=== PATIENT | male | born 1955 | race Caucasian/White ===

== ENCOUNTER → 2017-02-13 | Outpatient (CLI) | payer MEDICARE ==
[~2017-02-13] MED LIST: HYDROCODON-ACE1 EA12 PO; LO-DOSE ASPIRIN81 M1 PO; METOPROLOL SUCC25 MG PO; MULTI VITAMIN1 EACH PO; NITROGLYGERIN0.4 MG SL; ROSUVASTATIN CA10 MG PO; ZESTRIL5 MG PO
[2017-02-13 16:06] LABS: GLOM FILT RATE Estimated 79.8 mL/min (>60)
== END | disposition home or self-care (01) ==
LOC: CLAB 15:02
PROVIDERS: Registered Nurse
DX: I71.4 Abdominal aortic aneurysm, without rupture (principal)
CPT/HCPCS: 82565; 84520

== ENCOUNTER → 2017-03-11 | Outpatient (CLI) | payer MEDICARE ==
--- NOTE | ~2017-03-11 | CT14 ---
[facility] A Service of [facility] & [facility] RADIOLOGY TEXT RESULTS PATIENT: PRANAV SERVIN LOCATION: [facility] : 53 UNIT #: [id number] AGE: [address]: Briana Ortiz SEX: M ORDER DR: [id number] [facility] [address] [facility]. [place], [place] [address] [id number] O MR#: [id number] Acc #: [id number] NAME: PRANAV SERVIN : 1955 SEX: M STUDY DATE/TIME: 03/11/2017 12:03 UNIT: [facility] ROOM: STUDY DESCRIPTION: CT Angio Abdomen and Pelvis Attending Physician: Briana Ortiz A.P.R.N. Referring Physician: Briana Ortiz A.P.R.N. Ordering Physician: Briana Ortiz A.P.R.N. Primary Care Physician: Saeid Richards M.D. MEDICAL IMAGING REPORT This report is preliminary unless electronic signature is present EXAM CT angiogram of the abdomen and pelvis with contrast. INDICATIONS 61-year-old male with followup aortic aneurysm. TECHNIQUE CT angiogram of the abdomen and pelvis was performed following administration of IV contrast. Coronal, sagittal, and 3-D reformatted images were obtained. This CT exam was performed with one or more of the following radiation dose reduction techniques: automatic exposure control, adjustment of mA and/or kV according to patient size, and iterative reconstruction. COMPARISON 09/09/[address] ANGIOGRAM: Stable infrarenal abdominal aortic aneurysm measuring about 4.5 cm in greatest dimension. The visceral arteries are stable in appearance. The iliac arteries are stable in appearance. CT ABDOMEN: Evaluation of the lung bases demonstrates a large left hilar mass measuring 4.2 x 3.8 cm, highly suspicious for malignancy. There is a stable 1.1-cm nodule in the lung base on the right. The liver is unremarkable. Cholecystectomy. Tiny amount of pneumobilia. The spleen, kidneys, adrenal glands and pancreas are unremarkable. PELVIS: Small fat-containing left inguinal hernia. The colon is unremarkable. STS. [facility] A Service of [facility] & [facility] RADIOLOGY TEXT RESULTS PATIENT: RPANAV SERVIN LOCATION: [facility] : 53 UNIT #: [id number] AGE: [address]: Briana Ortiz SEX: M ORDER DR: Bone windows demonstrate bilateral hip arthroplasties and degenerative changes of the lumbar spine. IMPRESSION 1. Noted in the lung bases is a large left hilar mass highly suspicious for malignancy. It measures 4.2 x 3.8 cm. Recommend formal chest CT with contrast for further evaluation, as well as pulmonary consultation. 2. Stable infrarenal abdominal aortic aneurysm. 3. Findings were discussed with the patient's ordering provider, Mark Ortiz, at 02:08 p.m. on 03/12/2017. Dictated by... Gordo Nascimento M.D. THIS IS AN ELECTRONICALLY VERIFIED REPORT Gordo Nascimento M.D. at 03/14/2017 9:08 AM LUCIANO/phil TD: 03/12/2017 17:02 JOB #: [id number] MEDICAL IMAGING REPORT Page 1 of 1 COPY
== END | disposition home or self-care (01) ==
LOC: CCAT 10:54
DX: I71.4 Abdominal aortic aneurysm, without rupture (principal); R91.8 Other nonspecific abnormal finding of lung field
CPT/HCPCS: 74174; Q9967

== ENCOUNTER → 2017-04-24 | Outpatient (CLI) | payer MEDICARE ==
--- NOTE | ~2017-04-24 | PFT ---
[id number] [facility]. [place], [place] [address] [id number] O MR#: [id number] NAME: PRANAV SERVIN ROOM: SEX: M STUDY DATE/TIME: 04/30/2017 : 1955 AGE: 61 STUDY DESCRIPTION: Attending Physician: Elmer Ramirez M.D. Referring Physician: Elmer Ramirez M.D. Primary Care Physician: Saeid Richards M.D. PULMONARY DIAGNOSTIC REPORT EXAM Pulmonary function test. FINDINGS Spirometry is consistent with a mild to moderate restrictive defect. FEV1 is 2.58 liters, 60% of predicted. There is no response to bronchodilators. Flow volume loop is suggestive of a combined defect. Lung volumes reveal air trapping and hyperinflation. Diffusion capacity is moderately to severely reduced. Dictated by... Delroy Green M.D. WOL/gz TD: 04/30/2017 09:16 JOB #: [id number] CC: Elmer Ramirez M.D. PULMONARY DIAGNOSTIC REPORT Page 1 of 1
--- NOTE | ~2017-04-24 | PFT ---
[id number] [facility]. [place], [place] [address] [id number] O MR#: [id number] NAME: PRANAV SERVIN ROOM: SEX: M STUDY DATE/TIME: 04/29/2017 : 1955 AGE: 61 STUDY DESCRIPTION: Attending Physician: Elmer Ramirez M.D. Referring Physician: Elmer Ramirez M.D. Primary Care Physician: Saeid Richards M.D. PULMONARY DIAGNOSTIC REPORT EXAM PFT. FINDINGS Spirometry is suggestive of a restrictive defect. There is no significant response to bronchodilators. FEV1 is 2.58 liters, 60% of predicted. Flow volume loop is suggestive of an obstructive defect. Lung volumes fail to confirm a restrictive defect. Dictated by... Delroy Green M.D. WAGNER/sue TD: 04/29/2017 15:07 JOB #: [id number] PULMONARY DIAGNOSTIC REPORT Page 1 of 1
--- NOTE | ~2017-04-24 | CT55 ---
[facility] A Service of [facility] & [facility] RADIOLOGY TEXT RESULTS PATIENT: PRANAV SERVIN LOCATION: [facility] : 53 UNIT #: [id number] AGE: [address]: Elmer Ramirez MD SEX: M ORDER DR: [id number] [facility] [address] [facility]. [place], [place] [address] [id number] O MR#: [id number] Acc #: [id number] NAME: PRANAV SERVIN : 1955 SEX: M STUDY DATE/TIME: 04/24/2017 9:52 UNIT: [facility] ROOM: STUDY DESCRIPTION: CT Chest W Con Attending Physician: Elmer Ramirez M.D. Referring Physician: Elmer Ramirez M.D. Ordering Physician: Elmer Ramirez M.D. Primary Care Physician: Saeid Richards M.D. MEDICAL IMAGING REPORT This report is preliminary unless electronic signature is present EXAM CT scan of the chest with contrast INDICATIONS Evaluate left hilar mass. COMPARISON CT abdomen 03/11/2017. TECHNIQUE Patient was given 100 mL of Isovue-370 and axial 5-mm images were obtained through the chest. This CT exam was performed with one or more of the following radiation dose reduction techniques: Automatic exposure control, adjustment of mA and/or kV according to patient size, and iterative reconstruction. FINDINGS There is a left hilar mass abutting the pulmonary artery. It is about 4.3 x 3.8 x 4.1 cm and is very suspicious for a malignancy. It is approximately the same size as it was 03/11/2017. There is a normal-sized node in the pretracheal region measuring 16 mm in diameter. It is unchanged from the prior study. The visualized portions of the upper abdomen show previous cholecystectomy and are otherwise unremarkable. Sternotomy wires are present. The bones are otherwise unremarkable. There is a 10-mm nodule in the right lung base which is noncalcified and that is also unchanged from 03/11. The rest of the lungs are clear. IMPRESSION 1. There is a left hilar mass measuring about 4 cm in each dimension that is unchanged from 03/11/2017 that is very suspicious for a primary malignancy. There is a lymph node seen in the pretracheal region which is stable from 03/11 and it is at upper limits of normal STS. [facility] A Service of [facility] RADIOLOGY TEXT RESULTS PATIENT: PRANAV SERVIN LOCATION: [facility] : 53 UNIT #: [id number] AGE: [address]: Elmer Ramirez MD SEX: M ORDER DR: in size. 2. There is a 10-11 mm noncalcified nodule in the right base which is stable. 3. Otherwise, the study is negative. Dictated by... Frankie Garcia M.D. THIS IS AN ELECTRONICALLY VERIFIED REPORT Frankie Garcia M.D. at 04/25/2017 9:42 AM DARELL/jourdan TD: 04/24/2017 20:30 JOB #: [id number] MEDICAL IMAGING REPORT Page 1 of 1 COPY
[2017-04-24 08:04] LABS: ARTERIAL BLD GAS O2 SATURATION 92.6 % (90.0-100.0); ARTERIAL BLOOD GAS ALLEN TEST NORMAL; ARTERIAL BLOOD GAS ART SITE RIGHT RADIAL; ARTERIAL BLOOD GAS CARBOXY HB 2.1 %sat (0.0-9.0); ARTERIAL BLOOD GAS HCO3 28.8 mmol/L; ARTERIAL BLOOD GAS MET HB 0.5 %sat (0.0-2.0); ARTERIAL BLOOD GAS PCO2 45.4 mmHg (35.0-45.0); ARTERIAL DRAW? YES
[2017-04-24 11:56] LABS: POC - CREATININE 0.85 mg/dL (0.64-1.27); POC - GFR >60.0 mL/min (>60)
== END | disposition home or self-care (01) ==
LOC: CRC 07:46
PROVIDERS: Surgery
DX: R91.1 Solitary pulmonary nodule (principal); R91.8 Other nonspecific abnormal finding of lung field
CPT/HCPCS: 36600; 71260; 82565; 82803; 94060; 94726; 94729; Q9967

== ENCOUNTER → 2017-05-01 | Day surgery (SDC) | payer MEDICARE ==
--- NOTE | ~2017-05-01 | OR ---
Unit #: [id number] #: [id number] Patient: PRANAV SERVIN [id number] [address] [address] [id number] O MR#: [id number] NAME: PRANAV SERVIN ROOM: Date of Procedure: 05/01/2017 Admission Date: 05/01/2017 Surgeon: Elmer Ramirez M.D. : 1955 Attending Physician: Elmer Ramirez M.D. Referring Physician: Elmer Ramirez M.D. OPERATIVE REPORT PREOPERATIVE DIAGNOSES 4.2 cm left hilar mass; 1.1 cm nodule at the right lung base. POSTOPERATIVE DIAGNOSES 4.2 cm left hilar mass; 1.1 cm nodule at the right lung base with gross tumor being present in the upper division of the left upper lobe. PROCEDURES PERFORMED Flexible fiberoptic bronchoscopy with biopsies obtained from the left upper lobe tumor and with bronchial washings being collected. ANESTHESIA MAC. ESTIMATED BLOOD LOSS About 3 mL. COMPLICATIONS None. DESCRIPTION OF PROCEDURE The patient was taken to the endoscopy suite and left on a stretcher in a supine position. After appropriate monitoring lines had been placed, IV sedation was given per the Anesthesia Department. Hurricaine spray was used to anesthetize the posterior pharynx. After adequate anesthesia had been obtained in this fashion, the flexible bronchoscope was passed orally per a bite block into the posterior pharynx. The vocal cords were visualized and found to be without lesions and both moved well with phonation. Anesthesia of the cords was obtained by injecting 2% Xylocaine per the scope. The scope was passed through the cords into the trachea. 1% Xylocaine was injected per the scope to anesthetize the tracheobronchial tree. The entire length of trachea was visualized and found to be within normal limits. The maria de jesus was fairly sharp. The right upper lobe, right middle lobe, and right lower lobe were all examined to their subsegmental bronchi level and found to be within normal limits. The left mainstem bronchus was normal. The left lower lobe was examined to its subsegmental bronchi level and found to be within normal limits. Examination of the left upper lobe showed the lingular segment to be open and without lesions. Examination of the upper division of the left upper lobe showed what seemed to be gross tumor involving the anterior and inferior wall. Photos were taken. Multiple biopsies were taken of what seemed to be the tumor involving the left upper lobe upper division Unit #: [id number] #: [id number] Patient: PRANAV SERVIN bronchus. There was some bleeding from the biopsy sites and this was controlled by instilling epinephrine solution per the scope. After adequate hemostasis had been ensured, bronchial washings that had been obtained up to this point were sent for cytology as well as cultures. The bronchoscope was removed. The patient tolerated the procedure well and left the endoscopy suite in satisfactory condition. Dictated by... Amita Torres/deanne TD: 05/02/2017 19:10 JOB #: [id number] OPERATIVE REPORT Page 1 of 1 X Elmer Ramirez MD X PROCEDURE OPERATIVE NOTE
== END | disposition home or self-care (01) ==
LOC: COPS 08:52
PROVIDERS: Surgery
DX: C34.12 Malignant neoplasm of upper lobe, left bronchus or lung (principal); J44.9 Chronic obstructive pulmonary disease, unspecified; F17.200 Nicotine dependence, unspecified, uncomplicated; I25.10 Atherosclerotic heart disease of native coronary artery without angina pectoris; I25.2 Old myocardial infarction
CPT/HCPCS: 87070; 87077; 87102; 87106; 87116; 87186; 87205; 87206; 88108; 88305; 88341; 88342; J0171; J2250

== ENCOUNTER → 2017-05-23 | Outpatient (CLI) | payer MEDICARE ==
--- NOTE | ~2017-05-23 | CT69 ---
[facility] A Service of [facility] RADIOLOGY TEXT RESULTS PATIENT: PRANAV SERVIN LOCATION: [facility] : 53 UNIT #: [id number] AGE: [address]: Elmer Ramirez MD SEX: M ORDER DR: [id number] [facility]. [place], [place] [address] [id number] O MR#: [id number] Acc #: [id number] NAME: PRANAV SERVIN : 1955 SEX: M STUDY DATE/TIME: 05/23/2017 10:36 UNIT: [facility] ROOM: STUDY DESCRIPTION: CT Head W Contrast Attending Physician: Elmer Ramirez M.D. Referring Physician: Elmer Ramirez M.D. Ordering Physician: Elmer Ramirez M.D. Primary Care Physician: Saeid Richards M.D. MEDICAL IMAGING REPORT This report is preliminary unless electronic signature is present EXAM Contrast-enhanced head CT, 05/23/2017 PROCEDURE Axial contrast-enhanced head CT. This CT exam was performed with one or more of the following radiation dose reduction techniques: Automatic exposure control, adjustment of mA and/or kV according to patient size, and iterative reconstruction. COMPARISON None HISTORY Diagnosed with lung cancer in March 2017, now with one-year history of blurred vision. FINDINGS The study is motion degraded. Allowing for this, there is no intracranial mass or abnormal enhancement. Motion certainly limits the exam, but there is no evidence of metastatic disease and the brain itself appears normal. The extracranial soft tissues, skull base and calvarium appear normal. IMPRESSION Motion limited, otherwise normal negative contrast-enhanced head CT. Dictated by... Hilario Bass M.D. THIS IS AN ELECTRONICALLY VERIFIED REPORT Hilario Bass M.D. at 05/27/2017 5:20 PM TEV/psc [facility] A Service [facility] RADIOLOGY TEXT RESULTS PATIENT: PRANAV SERVIN LOCATION: [facility] : 53 UNIT #: [id number] AGE: [address]: Elmer Ramirez MD SEX: M ORDER DR: TD: 05/23/2017 22:57 JOB #: [id number] MEDICAL IMAGING REPORT Page 1 of 1 COPY
[2017-05-23 11:56] LABS: POC - CREATININE 0.77 mg/dL (0.64-1.27); POC - GFR >60.0 mL/min (>60)
== END | disposition home or self-care (01) ==
LOC: CCAT 09:06
PROVIDERS: Surgery
DX: C34.92 Malignant neoplasm of unspecified part of left bronchus or lung (principal)
CPT/HCPCS: 70460; 82565; Q9967

== ENCOUNTER → 2017-05-29 | Outpatient (CLI) | payer MEDICARE ==
[2017-05-29 16:31] LABS: ARTERIAL BLD GAS O2 SATURATION 90.3 % (90.0-100.0); ARTERIAL BLOOD GAS CARBOXY HB 2.9 %sat (0.0-9.0); ARTERIAL BLOOD GAS HCO3 29.6 mmol/L; ARTERIAL BLOOD GAS MET HB 0.7 %sat (0.0-2.0); ARTERIAL BLOOD GAS PCO2 47.2 mmHg (35.0-45.0); ARTERIAL BLOOD GAS pH 7.405 (7.350-7.450)
[2017-05-29 16:32] LABS: ARTERIAL BLOOD GAS ART SITE RIGHT RADIAL; ARTERIAL BLOOD GAS PO2 66.8 mmHg (80.0-100); ARTERIAL DRAW? YES
== END | disposition home or self-care (01) ==
LOC: CLAB 16:11
PROVIDERS: Surgery
DX: C34.90 Malignant neoplasm of unspecified part of unspecified bronchus or lung (principal)
CPT/HCPCS: 36600; 82803

== ENCOUNTER → 2017-06-12 | Day surgery (SDC) | payer MEDICARE ==
--- NOTE | ~2017-06-12 | EKG ---
PATIENT: PRANAV SERVIN UNIT #: [id number] Ventricular Rate: 53 BPM Atrial Rate: 53 BPM P-R Interval: 210 ms QRS Duration: 140 ms Q-T Interval: 474 ms QTC Calculation(Bezet): 444 ms P Arcadia: -1 degrees Calculated R [place]cad[place]: 55 degrees Calculated T [place]cad[place]: 116 degrees Diagnosis Line: Sinus bradycardia with sinus arrhythmia with 1st Diagnosis Line: degree A-V block Diagnosis Line: Non-specific intra-ventricular conduction block Diagnosis Line: Abnormal QRS-T angle, consider primary T wave Diagnosis Line: abnormality Diagnosis Line: Abnormal ECG Diagnosis Line: No previous ECGs available Diagnosis Line: Confirmed by GAIL TUCKER MD ([id number]) on 06/13/2017 Diagnosis Line: 4:58:38 PM INTERPRETING MD: GARRETT RICHEY
--- NOTE | ~2017-06-12 | CR72 ---
[facility] A Service of [facility] RADIOLOGY TEXT RESULTS PATIENT: PRANAV SERVIN LOCATION: [facility] : 53 UNIT #: [id number] AGE: [address]: Elmer Ramirez MD SEX: M ORDER DR: [id number] [facility] [address] [facility]. [place], [place] [address] [id number] O MR#: [id number] Acc #: [id number] NAME: PRANAV SERVIN : 1955 SEX: M STUDY DATE/TIME: 06/12/2017 11:58 UNIT: [facility] ROOM: STUDY DESCRIPTION: CR Chest Single View Portable Attending Physician: Elmer Ramirez M.D. Ordering Physician: Elmer Ramirez M.D. Primary Care Physician: Saeid Richards M.D. MEDICAL IMAGING REPORT This report is preliminary unless electronic signature is present EXAM AP portable chest DATE 06/12/2017 HISTORY Postop port placement today. Previous CABG and stent placement. History of lung cancer. COMPARISON PET/CT 05/15/2017, AP portable chest 12/02/2016. FINDINGS Right chest wall Port-A-Cath has been placed with its tip extending to the [id number]-lz-ilpsz SVC. No pneumothorax is visible. Patient's left hilar/left upper lobe lung mass is redemonstrated. Central hilar prominence bilaterally also may represent changes of the patient's known pulmonary trunk enlargement demonstrated to better advantage on previous CT. No pleural effusion is seen. Stable cardiac enlargement with signs of median sternotomy. No acute osseous abnormalities. IMPRESSION 1. Right chest wall Port-A-Cath extends to the rdt-ol-ueljo SVC level. No pneumothorax is seen. 2. The patient's known left hilar-left upper lobe lung mass is redemonstrated, seen to better advantage on the recent PET CT of 05/15/2017. 3. Stable cardiomegaly. 4. Prominence of central pulmonary vasculature, likely representing pulmonary artery enlargement seen on previous CT chest. [facility] A Service of [facility] RADIOLOGY TEXT RESULTS PATIENT: PRANAV SERVIN LOCATION: [facility] : 53 UNIT #: [id number] AGE: [address]: Elmer Ramirez MD SEX: M ORDER DR: Dictated by... Marcella Heart M.D. THIS IS AN ELECTRONICALLY VERIFIED REPORT Marcella Heart M.D. at 06/13/2017 1:53 PM [facility]/trey TD: 06/12/2017 15:52 JOB #: [id number] MEDICAL IMAGING REPORT Page 1 of 1 COPY
--- NOTE | ~2017-06-12 | OR ---
Unit #: [id number] #: [id number] Patient: PRANAV SERVIN [id number] [address] [address] [id number] O MR#: [id number] NAME: PRANAV SERVIN ROOM: Date of Procedure: 06/12/2017 Admission Date: 06/12/2017 Surgeon: Elmer Ramirez M.D. : 1955 Attending Physician: Elmer Ramirez M.D. Primary Care Physician: Saeid Richards M.D. 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 PROCEDURE PERFORMED Insertion of a right subclavian PowerPort. ANESTHESIA MAC. ESTIMATED BLOOD LOSS Less than 5 mL. DRAINS None. COMPLICATIONS None. DESCRIPTION OF PROCEDURE The patient was taken to the operating room and placed on the operating room table in a supine position. After appropriate monitoring lines had been placed, IV sedation was given per the Anesthesia Department. The neck and upper chest bilaterally were prepped with ChloraPrep and draped in a sterile fashion. After adequate anesthesia had been obtained using local 1% Xylocaine, the right subclavian vein was entered with a needle. A guidewire was passed per this needle down into the superior vena cava. The guidewire was clipped to the drapes with a hemostat. A point was chosen on the right anterior chest for placement of the venous port. A small transverse skin incision was made just above this proposed site after adequate anesthesia had been obtained using local 1% Xylocaine. The incision was carried down through the subcutaneous tissue with hemostasis being obtained using the Bovie. A subcutaneous pocket was formed beneath the lower skin flap just superficial to the pectoralis major fascia. Hemostasis of this pocket was obtained using the Bovie. A stab wound incision was made at the area where the guidewire entered the skin. An introducer was passed over the guidewire. The Silastic tubing for the venous port which had been irrigated with heparinized saline solution was then passed per this introducer. The introducer was stripped away. The Silastic tubing was tunneled subcutaneously down to the second incision. Unit #: [id number] #: [id number] Patient: PRANAV SERVIN Under fluoroscopic control, the tubing was pulled back until its tip was sitting at about the junction between the superior vena cava and right atrium. The tubing was cut and connected to the PowerPort. The port was entered with a John needle and blood could easily be aspirated. The port and tubing were irrigated with heparinized saline solution. The PowerPort was placed in the subcutaneous pocket and sutured in place to the pectoralis major fascia using interrupted 3-0 silk suture. The two incisions were then closed using 3-0 Vicryl for the subcutaneous tissue and running 4-0 Vicryl subcuticular stitch for the skin. Dermabond was applied to the two incisions. Estimated blood loss in the procedure was less than 5 mL. Sponge and needle counts in the operation were correct. The patient tolerated the procedure well and left the operating room in satisfactory condition. Dictated by... Amita Torres/deanne TD: 06/13/2017 13:38 JOB #: [id number] OPERATIVE REPORT Page 1 of 1 X Elmer Ramirez MD X PROCEDURE OPERATIVE NOTE
[2017-06-12 08:50] LABS: HEMATOCRIT 43.4 % (38.0-50.0); HEMOGLOBIN 14.6 gm/dL (13.0-16.0); MEAN CELL VOLUME 91.7 FL (83-96); MEAN CORPUSCULAR HEMOGLOBIN 30.9 PG (28-34); MEAN CORPUSCULAR HGB CONC 33.7 g/dL (30-36); RED BLOOD COUNT 4.73 X10e (3.90-5.60); RED CELL DISTRIBUTION WIDTH 13.9 % (11.0-15.5); WHITE BLOOD COUNT 8.9 X10e3 (4.0-10.5)
[2017-06-12 09:05] LABS: PARTIAL THROMBOPLASTIN TIME 27.9 SECONDS (23.5-31.3); PROTHROMBIN TIME (PATIENT) 10.7 SECONDS (10.0-11.7)
== END | disposition home or self-care (01) ==
LOC: CSUR 08:08
PROVIDERS: Surgery
DX: C34.12 Malignant neoplasm of upper lobe, left bronchus or lung (principal); R91.8 Other nonspecific abnormal finding of lung field; I27.2 Other secondary pulmonary hypertension; I10 Essential (primary) hypertension; I51.7 Cardiomegaly; I71.4 Abdominal aortic aneurysm, without rupture; M19.90 Unspecified osteoarthritis, unspecified site; E78.5 Hyperlipidemia, unspecified; K58.9 Irritable bowel syndrome, unspecified; I20.9 Angina pectoris, unspecified; Z79.899 Other long term (current) drug therapy; Z79.82 Long term (current) use of aspirin; Z79.891 Long term (current) use of opiate analgesic; Z87.891 Personal history of nicotine dependence; Z82.49 Family history of ischemic heart disease and other diseases of the circulatory system; I25.2 Old myocardial infarction; Z96.643 Presence of artificial hip joint, bilateral; Z95.5 Presence of coronary angioplasty implant and graft; Z95.1 Presence of aortocoronary bypass graft; Z90.49 Acquired absence of other specified parts of digestive tract; Z98.52 Vasectomy status; Z98.890 Other specified postprocedural states; Z98.1 Arthrodesis status
CPT/HCPCS: 71010; 76000; 77001; 85027; 85610; 85730; 93005; C1788; J0690; J1644; J2250; J3010